=== PATIENT | female | born 1995 | race Caucasian/White ===

== ENCOUNTER 2017-09-27 18:59 | Emergency (ER) | payer OTHER ==
[~2017-09-27] VITALS: Ht 180.3 cm; Wt 64.4 kg
[~2017-09-27 18:59] MED LIST: ALYACEN 1-35-21 EACH PO; CIPRO500 M1 PO; FERROUS SULFAT325 M3 PO; LO LOESTRIN FE1 EACH PO; MOBIC15 M1 PO; NAPROXEN500 M2 PO; PYRIDIUM100 M1 PO; ZEBUTAL 50-3251 EACH PO; ZOFRAN4 M2 PO
[2017-09-27 19:06] VITALS: BP 150/71
== END 2017-09-27 21:40 | disposition admitted as inpatient to this hospital (09) ==
LOC: ERH 18:59
DX: O21.9 Vomiting of pregnancy, unspecified (principal)
CPT/HCPCS: 99281